=== PATIENT | male | born 1975 | race Caucasian/White ===

== ENCOUNTER 2016-03-07 20:03 | Emergency (ER) ==
[2016-03-07 20:27] LABS: URINE CULTURE NEEDED? NO; URINE MICRO REVIEW NEEDED? NO; URINE SOURCE CLEAN CATCH
[2016-03-07 20:34] LABS: BILIRUBIN URINE NEGATIVE (NEGATIVE); BLOOD URINE NEGATIVE (NEGATIVE); COLOR YELLOW; GLUCOSE URINE NEGATIVE (NEGATIVE); LEUKOCYTES URINE NEGATIVE (NEGATIVE); NITRITE URINE NEGATIVE (NEGATIVE); PROTEIN URINE NEGATIVE (NEGATIVE); SP GRAVITY URINE 1.005; TURBIDITY URINE CLEAR (CLEAR); UROBILINOGEN URINE NORMAL (NORMAL)
[2016-03-07 20:35] LABS: UR EPITHELIAL CELLS <10 /HPF (<10); URINE BACTERIA NEGATIVE /HPF; URINE RBC <10 /HPF (<10); URINE WBC <10 /HPF (<10)
[2016-03-07] MEDS ORDERED: ATIVAN IM ONE (20:40)
[2016-03-07] MEDS ORDERED: GEODON IM ONE (20:40)
[2016-03-07] MEDS ORDERED: STERILE WATER INJ. INJ ONE (20:40)
[2016-03-07] MEDS ORDERED: GEODON ONE (20:41)
[2016-03-07] MEDS ORDERED: ATIVAN ONE (20:41)
[2016-03-07] MEDS ORDERED: STERILE WATER INJ. ONE (20:41)
[2016-03-07 20:50] LABS: UR AMPHETAMINES QUAL NONE DETECTED (NONE DETECT); UR BARBITUATES QUAL NONE DETECTED (NONE DETECT); UR BENZODIAZEPIN QUAL NONE DETECTED (NONE DETECT); UR CANNABINOIDS QUAL NONE DETECTED (NONE DETECT); UR COCAINE QUAL PRESUMPTIVE POSITIVE (NONE DETECT); UR METHADONE QUAL NONE DETECTED (NONE DETECT); UR OPIATES QUAL NONE DETECTED (NONE DETECT); UR OXYCODONE QUAL NONE DETECTED (NONE DETECT); UR PCP QUAL NONE DETECTED (NONE DETECT)
[2016-03-07 21:06] LABS: MANUAL DIFF NEEDED? NO
[2016-03-07 21:17] LABS: BASO% 1.7 % (0.0-0.8); EOS# 0.09 X1000 (0.0-0.7); EOS% 1.4 % (0.0-10.0); HEMATOCRIT 43.3 % (42.0-52.0); LYMPH% 30.8 % (20.5-51.1); MCH 33.3 PG (27-31); MCHC 34.6 g/dL (33-37); MCV 96.2 FL (81-99); MONO# 0.56 X1000 (0.11-0.59); MONO% 8.6 % (1.7-9.3); MPV 10.3 FL (7.4-10.4); NEUT% 57.5 % (42.2-75.2); PLT 380 X1000 (130-400)
[2016-03-07 21:40] LABS: ACETAMINOPHEN < 1.2 ug/mL (10-30); AGAP 15; ALBUMIN 4.9 g/dL (3.5-5.0); ALKALINE PHOSPHATASE 50 U/L (32-122); BUN 7 mg/dL (8-22); CALCIUM 9.1 mg/dL (8.8-10.2); CHLORIDE 102 mmol/L (98-107); COSMO 281; GOT 30 U/L (10-34); GPT 11 U/L (10-44); POTASSIUM 4.7 mmol/L (3.5-5.1); SODIUM 142 mmol/L (136-145); TCO2 25 mmol/L (25-35); TOTAL BILIRUBIN 0.29 mg/dL (0.20-1.00); TOTAL PROTEIN 7.6 g/dL (6.3-8.3)
[2016-03-07 21:58] LABS: FREE T4 1.44 ng/dL (0.93-1.70)
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
[2016-03-08] MEDS ORDERED: XYLOCAINE 1% INJ ONE (01:07)
--- NOTE | 2016-03-08 06:16 | EKG Report ---
Test Performed on : 03/08/2016 02:08:00 AM Test Reason : si Blood Pressure : / mmHG Vent. Rate : 071 BPM Atrial Rate : 071 BPM P-R Int : 136 ms QRS Dur : 106 ms QT Int : 416 ms P-R-T Axes : 080 081 066 degrees QTc Int : 452 ms Normal sinus rhythm. Incomplete left bundle branch block Borderline ECG When compared with ECG of 07-NOV-2014 20:54, No significant change was found Unconfirmed Result
[2016-03-08] MEDS ORDERED: NORCO-7.5 PO ONE ×2 (08:38→10:28)
[2016-03-08 10:34] VITALS: BP 106/66
== END 2016-03-08 13:30 | disposition home or self-care (01) ==
LOC: ED 20:03
DX: S51.812A Laceration without foreign body of left forearm, initial encounter (principal); S61.512A Laceration without foreign body of left wrist, initial encounter; F32.9 Major depressive disorder, single episode, unspecified; R94.31 Abnormal electrocardiogram [ECG] [EKG]; F10.10 Alcohol abuse, uncomplicated; R45.1 Restlessness and agitation; F17.210 Nicotine dependence, cigarettes, uncomplicated; Z71.6 Tobacco abuse counseling; Z90.81 Acquired absence of spleen; W45.8XXA Other foreign body or object entering through skin, initial encounter
CPT/HCPCS: 36415; 80053; 81001; 82607; 84439; 84443; 85025; 93005; 96372; G0480; J2060; J3486